=== PATIENT | male | born 1960 | race Caucasian/White ===

== ENCOUNTER 2017-10-24 02:41 | Inpatient (IN) | payer OTHER ==
[~2017-10-24] VITALS: Ht 188 cm; Wt 123.8 kg
[~2017-10-24 02:41] MED LIST: HYDROCODON-ACE1 EAC2 PO
--- NOTE | 2017-10-24 11:05 | Admission Core Measures ---
Acute Coronary Syndrome (CM) ACS Core Measures Acute Coronary Syndrome Diagnosis No Congestive Heart Failure (NEW) CHF Core Measures Congestive Heart Failure Diagnosis No Cerebrovascular Accident CVA Core Measures CVA/TIA Diagnosis No Venous Thromboembolism VTE Core Elian (View Protocol) VTE Risk Factors Surgery No Mechanical VTE Prophylaxis d/t N/A MechProphylax Ordered No VTE Pharm Prophylaxis d/t NA PharmProphylax ordered Problem List As ranked by this Provider includes Assessment & Plan 1. Unilateral primary osteoarthritis, right hip HOME MEDS Home Med List Hydrocodone/Acetaminophen (Hydrocodon-Acetaminophen 5-325) 5 MG-325 MG TABLET 0.5-1 TAB PO AD PRN PAIN (Reported)
[2017-10-24] MEDS ORDERED: MS CONTIN15 M3 PO (11:07)
[2017-10-24] MEDS ORDERED: INDOMETHACIN25 M1 PO (11:07)
[2017-10-24] MEDS ORDERED: MIRALAX17 G1 PO (11:07)
[2017-10-24] MEDS ORDERED: COLACE100 M1 PO (11:07)
[2017-10-24] MEDS ORDERED: DILAUDID2 M1 PO (11:07)
[2017-10-24] MEDS ORDERED: ASPIRIN EC81 M1 PO (11:07)
[2017-10-24] MEDS ORDERED: PRILOSEC OTC20 M1 PO (11:07)
--- NOTE | 2017-10-24 11:10 | Patient Discharge Instructions ---
Discharge Instructions General Discharge Information You were seen/treated for: Right hip pain related to unilateral primary osteoarthritis You had these procedures: Right total hip replacement Watch for these problems: Increasing pain despite the use of pain medication Increasing redness, warmth or swelling Drainage of any type from incision Inability to bear weight on operative leg Persistent nausea and vomiting Fever greater than 101.5 degrees Do not soak the wound: Yes No bath, but you may shower: Yes Other wound care: Please keep wound clean and dry. No ointments or lotions of any type on or near incision at any time. No exceptions. Your dressing will be changed by your nurse on the second day after your surgery. Daily dry dressing changes are recommended each day thereafter. Do not soak your wound in a bath or pool at any time until otherwise indicated by your surgeon. You may shower, please dry wound immediately after shower with a clean towel. Special Instructions: Take pain medication as needed Aspirin: You are taking this medication to help prevent blood clot formation. Please take with food to protect your stomach lining. Please take as directed. Constipation: Pain medication can cause constipation. Your surgeon has recommended that you take Colace and miralax each day. You may discontinue this medication if you develop loose stool or diarrhea. If you wish to continue this medication, it is available over the counter. If you are unable to move your bowels after several days, if you are unable to pass gas and are developing bloating, nausea, or vomiting as a result, please contact your doctor. You are on indomethacin, this is an anti-inflammatory medication. Do not take any ibuprofen, Motrin, Advil or Aleve with this, you may take Tylenol instead. Diet Continue normal diet: Yes Recommended Diet: Regular Activity Full Activity/No Limits: No Activity Self Limited: Yes Pounds, do NOT lift more than: 10 Acute Coronary Syndrome Inclusion Criteria At DC or during hospital stay patient has or had the following: ACS DIAGNOSIS No Discharge Core Measures Meds if any: Prescribed or Continued at Discharge Meds if any: NOT Prescribed or Continued at Discharge Congestive Heart Failure Inclusion Criteria At DC or during hospital stay patient has or had the following: CHF DIAGNOSIS No Discharge Core Measures Meds if any: Prescribed or Continued at Discharge Meds if any: NOT Prescribed or Continued at Discharge Cerebrovascular accident Inclusion Criteria At DC or during hospital stay patient has or had the following: CVA/TIA Diagnosis No Discharge Core Measures Meds if any: Prescribed or Continued at Discharge Meds if any: NOT Prescribed or Continued at Discharge Venous thromboembolism Inclusion Criteria VTE Diagnosis No VTE Type NONE VTE Confirmed by (Test) NONE Discharge Core Measures - Per Current guidelines, there needs to be overlap - treatment for the first 5 days of Warfarin therapy. - If discharged on Warfarin prior to 5 days of - overlap therapy, the patient will need to be - assessed for post discharge needs including - *Post discharge parental anticoagulation - *Warfarin and/or parental anticoagulation education - *Follow up date to check INR post discharge At least 5 days overlap therapy as Inpatient No Meds if any: Prescribed or Continued at Discharge Note: Overlap Therapy is Warfarin and Anticoagulant Meds if any: NOT Prescribed or Continued at Discharge
--- NOTE | 2017-10-24 11:12 | Surgical Discharge Summary ---
Visit Information Visit Dates Admission Date: 10/24/17 Discharge Date: 10/24/17 History of Present Illness Chief Complaint: Right hip pain related to unilateral primary osteoarthritis Medical History Isolation History: Standard Surgical History Pertinent Surgical History: non-contributory Review of Systems: See H&P Hospital Course Course Attending Physician: Anshul Oakes MD Primary Care Physician: Jelani VILLAGOMEZ,[facility]ly [facility] Course: Patient was admitted to the hospital for an elective total joint replacement. The procedure was tolerated well and patient was transferred to a general surgical floor. Diet was advanced and tolerated. The patient was evaluated and treated by physical therapy. At the time of hospital discharge, the vital signs were stable, neurovascular status was intact, and pain was controlled with the use of oral pain medications. Allergies: Coded Allergies: No Known Allergies (10/21/17) Disposition Summary Disposition Principal Diagnosis: Right hip unilateral primary osteoarthritis Additional Diagnosis: None Discharge Disposition: home health services Discharge Instructions General Discharge Information Code Status: Full Code Patient's Diet: Regular, advance as tolerated Patient's Activity: WBAT Follow-Up Instructions/Appts: Follow up with Dr. Oakes in 6 weeks from date of surgery. Please call office to arrange &/or confirm this appointment. Medications at Discharge Discharge Medications: Stop taking the following medications: Hydrocodone/Acetaminophen (Hydrocodon-Acetaminophen 5-325) 5 MG-325 MG TABLET ORAL As Directed as needed for PAIN Start taking the following new medications: Aspirin (Ecotrin*) 81 MG TABLET.DR 1 Tablet ORAL TWICE DAILY Qty = 60 No Refills Docusate Sodium (Colace) 100 MG CAPSULE 1 Capsule ORAL TWICE DAILY Qty = 14 No Refills Instructions: DISCONTINUE USE IF YOU DEVELOP LOOSE STOOL OR DIARRHEA Polyethylene Glycol 3350 (Miralax) 17 GRAM POWD.PACK 1 Packet ORAL DAILY Qty = 7 No Refills Instructions: dissolve in water, DISCONTINUE USE IF YOU DEVELOP LOOSE STOOL OR DIARRHEA Indomethacin (Indomethacin) 25 MG CAPSULE 1 Capsule ORAL THREE TIMES DAILY Qty = 30 No Refills Instructions: with food Morphine Sulfate (Ms Contin) 15 MG TABLET.ER 1 Tablet ORAL TWICE DAILY Qty = 6 No Refills Hydromorphone HCl (Dilaudid) 2 MG TABLET 1-2 Tablet ORAL EVERY 4-6 HOURS NEEDED as needed for PAIN Qty = 36 No Refills Omeprazole Magnesium (Prilosec Otc) 20 MG TABLET.DR 1 Tablet ORAL DAILY Qty = 30 No Refills
--- NOTE | 2017-10-24 12:05 | RADIOLOGY REPORT ---
EXAMINATION: XR HIP, RIGHT CLINICAL INFORMATION: Status post right total hip replacement COMPARISON: None TECHNIQUE: Two views of the right hip. FINDINGS: The femoral head prosthesis is well centered within the acetabular cup which exhibits lateral tilt of approximately 42 degrees and anteversion of approximately 22 degrees. The femoral stem is well positioned within the medullary cavity of the proximal femoral diaphysis. No endosteal scalloping or periprosthetic fracture. Drainage tube at the lateral aspect of the hip. IMPRESSION: There is satisfactory position and alignment of components of the right total hip arthroplasty. No acute periprosthetic fracture.
--- NOTE | 2017-10-24 12:19 | Operative Report ---
Operative/Inv Procedure Report Surgery Date: 10/24/17 Name of Procedure: Right total hip replacement Pre-Operative Diagnosis: Primary right hip DJD Post-Operative Diagnosis: Same Estimated Blood Loss: 350 Surgeon/Office Messenger Helper: Champ VILLAGOMEZ,Anshul English Anesthesia: block Operative/Procedure Note Note: Description of Procedure: The patient was taken to the operating room and positively identified. After induction of spinal anesthesia and administration of appropriate pre-operative antibiotics, the patient was positioned supine on the operating room table and all bony prominences were well padded. After performing a surgical timeout, the right lower extremity was prepped and draped in the usual sterile fashion. A direct anterior approach was made to the right hip. The incision was carried sharply through superficial soft tissues to the level of the fascia. Meticulous hemostasis was maintained with Bovie electocautery. The fascia over the tensor fascia ángel muscle was opened sharply and the interval between the TFL and the sartorius was entered bluntly taking care to stay lateral to the lateral femoral cutaneous nerve. Retractors were placed around the femoral neck and the pericapsular fat was identified. The ascending branches of the lateral femoral circumflex vessels were identified and carefully coagulated. The pericapsular fat and anterior capsule were then resected. A napkin ring osteotomy was performed and the femoral head was removed without difficulty. Attention was then turned to the acetabulum. After appropriate placement of retractors, the acetabulum was exposed. Soft tissue was cleaned from the acetabular margin and notch. Overhanging osteophytes were removed and the teardrop was exposed. The acetabulum was then sequentially reamed to accept a 62 mm Maribel Tritanium hemispherical solid shell. This was impacted into place in the appropriate position and fitted with a 36 mm Trident X3 zero degree polyethylene insert. Attention was then turned to the femur. After performing the appropriate ligament releases, the proximal femur was exposed. It was then sequentially broached to accept a size 7 Maribel Accolade 2 stem. This was trialed for leg length and stability. The trial component was removed and the final component was impacted into place. The trunnion was carefully cleaned and fit with a 36 mm, +0 Biolox delta ceramic femoral head. The hip was reduced and put through a full range of motion and found to be stable. The articular space was then irrigated with sterile saline. The periarticular soft tissues were infilitrated with Marcaine. The fascial layer was closed with interrupted #1 vicryl suture and the skin was re-approximated with interrupted 2 -0 vicryl. The skin was closed with a running 3-0 V-Lock suture. Steri-strips and a sterile dressing were applied. The patient was awakened and taken to the recovery room in satisfactory condition.
--- NOTE | 2017-10-24 15:12 | PN- Orthopedic ---
Subjective Subjective: Patient comfortable, no complaints, no pain, has yet to void. He cleared physical therapy, feels comfortable doing stairs, was able to eat and drink well , no nausea. He would like to be discharged home Objective Vital Signs and I&Os Intake & Output 10/24 1600 10/24 0800 10/24 0000 10/23 1600 10/23 0810/23 0000 Intake Total Output Total Balance Patient 273 lb Weight Weight Bed scale Measurement Method Vital signs stable, afebrile Physical Exam: Well-developed well-nourished no apparent distress. HEENT: Atraumatic, extraocular motion intact Neck: Supple, no lymphadenopathy Respiratory: No respiratory distress Extremities: No edema RIGHT lower extremity hip dressing in place, Dressing clean dry and intact Hemovac drain in place, 200 cc of bloody drainage noted, drain removed without incident Mild thigh swelling No signs of infection. No shortening or rotation Hip range of motion is limited and without unexpected pain Neurovascularly intact distally Bilateral calves are supple, nontender. Neuro: Alert and oriented x3 Psych: Mood affect normal, normal memory normal judgment. Skin: Warm and dry, no rash on exposed skin Assessment/Plan Assessment/Plan Postop day #0 status post right total hip arthroplasty anterior approach Perioperative antibiotics. Pain medication as needed. Cleared physical therapy, weightbearing as tolerated DC IV fluids Regular diet Indomethacin for prevention of heterotopic ossification Aspirin for DVT prophylaxis ALPS for DVT prophylaxis Regular home meds Dressing change postop day 2 DC home today with [facility]NA services after voids Core Measures Venous Thromboembolism VTE Risk Factors Surgery No Mechanical VTE Prophylaxis d/t N/A MechProphylax Ordered No VTE Pharm Prophylaxis d/t NA PharmProphylax ordered
== END 2017-10-24 16:10 | disposition home health service (06) | DRG 470 ==
LOC: SDA 02:41 → ENRESERV 11:44 → ENTRNSPT 12:10 → EDTRNSPT 12:27 → EDTRNSPTSTS 12:27 → 2NB 12:33 → CMPTRNSPT 12:44 → ENPENDDIS 15:10 → ENTRNSPT 16:00 → 2NB 16:10 → CMPTRNSPT 16:39
PROC: 0SR904A Replacement of Right Hip Joint with Ceramic on Polyethylene Synthetic Substitute, Uncemented, Open Approach (ICD-10-PCS; principal; 2017-10-24)
DX: M16.11 Unilateral primary osteoarthritis, right hip (principal); Z96.642 Presence of left artificial hip joint
CPT/HCPCS: 2NBP; 73502-RT; 97116-GO; 97161-GP; J0131; J0690; J2405; J2550